=== PATIENT | male | born 1960 | race Caucasian/White ===

== ENCOUNTER 2017-03-28 12:41 | Inpatient (IN) | payer MEDICARE ==
[~2017-03-28] VITALS: Ht 180.3 cm; Wt 109.8 kg
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
--- NOTE | ~2017-03-28 | CON ---
PATIENT'S NAME: BERTA CLEMENT [facility] AGE: 56 Y [address] ROOM: [id number] [place], [place] [address] LOCATION: GICU ADMIT DATE: 03/28/2017 Consultation DISCHARGE DATE: FAMILY PHYSICIAN: Danie Velasquez MD ATTENDING PHYSICIAN: TOD PEÑALOZA DATE OF CONSULTATION: 03/30/2017 REFERRING PHYSICIAN: Annmarie Long MD REASON FOR CONSULTATION: Colitis. HISTORY OF PRESENT ILLNESS: This is a very pleasant 56-year-old male with a significant past medical history of neurogenic bladder, paraplegia, status post suprapubic catheter placement, and type 2 diabetes. The patient was in his usual state health on Tuesday and attended the [facility] where he and his ate something. As he retreated home that evening, he was feeling sick with persistent nausea without any vomiting as well as significant diarrhea through the night that amplified on Tuesday. The patient became incoherent at home with confusion, and he was then brought into the emergency room. He was noted to have hypotension with systolic blood pressure in the 60s. He was given numerous fluid resuscitations as he was found to be in severe septic shock as well as need for IV vasopressors for a short while. The patient was admitted to intensive care and has been doing well. On workup, the patient did undergo a CT scan completed showing prominent stool in the right and transverse colon, colonic wall thickening from the splenic flexure to the rectum with surrounding induration of fat compatible with colitis. Stool workup has been negative for O and P and C diff as well. He has been placed on Zosyn. The patient has been recovering well in Intensive Care. We were asked to see in consultation for the diarrhea as well as nausea as well as finding on the CT scan of colitis. The patient was seen and examined. He is a very pleasant gentleman where his is at bedside during our visit. The patient states that he began having stool on Tuesday that progressively worsened to loose extreme diarrhea. The patient was incoherent and cannot remember if he had any associated abdominal pain. The patient's , who was with him, does state that he had significant abdominal distention at that time that she describes as "tight abdomen." He denies any history of colonoscopy secondary to difficulty with prep and being wheelchair-bound. 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 Gurvinder Hamilton. He states that the last dilation was completed approximately 3 months ago, and he is due in April for this. He also states that he has had cortisone injections into his PATIENT'S NAME: BERTA CLEMENT [facility] AGE: 56 Y [address] ROOM: [id number] [place] [id number] LOCATION: GICU ADMIT DATE: 03/28/2017 Consultation DISCHARGE DATE: FAMILY PHYSICIAN: Danie Velasquez MD ATTENDING PHYSICIAN: TOD PEÑALOZA, though cannot provide any more detail. The patient currently denies any chest pain, chest pressure, shortness of breath, fever, or chills. No abdominal pain, nausea, or vomiting. The patient also denies any dysphagia or odynophagia. PAST MEDICAL HISTORY: Type 2 diabetes, paraplegia, status post suprapubic catheter placement, and hypertension. SOCIAL HISTORY: The patient is . Denies any alcohol, tobacco, or illicit drug use. FAMILY HISTORY: Diabetes in his father. He denies any known gastrointestinal diseases or cancers to his knowledge. ALLERGIES: IV AND ORAL CONTRAST, SULFA, BACLOFEN, BETADINE, SULFAMETHOXAZOLE, TRIMETHOPRIM, OXYBUTYNIN, AND LATEX. CURRENT MEDICATIONS: Please refer to the medication administration record. REVIEW OF SYSTEMS: An all-point review of systems was completed, all were negative except for those identified in the History of Present Illness. PHYSICAL EXAMINATION: GENERAL: A very pleasant 56-year-old gentleman, lying in bed, who appears to be in no acute distress. VITAL SIGNS: Temperature 98.0, pulse of 110, respirations of 14, blood pressure 178/94, and oxygen saturation is 95% on room air. SKIN: [place], warm, and dry. No jaundice. HEENT: Head is normocephalic and atraumatic. Pupils are equal, round, and reactive to light. Sclerae are clear, nonicteric. Oral mucosa is pink and moist. No thyromegaly. NECK: Soft and supple. CARDIOVASCULAR: Regular. Normal S1 and S2. RESPIRATORY: Respirations even and unlabored. Lungs clear to auscultation. ABDOMEN: Soft, round, and nontender, though the patient states he has limited sensation in his abdomen. Bowel sounds positive. MUSCULOSKELETAL: No muscle weakness or atrophy. EXTREMITIES: No edema. NEUROLOGIC: Grossly nonfocal. PATIENT'S NAME: BERTA CLEMENT [facility] AGE: 56 Y [address] ROOM: [place] [address] LOCATION: GICU ADMIT DATE: 03/28/2017 Consultation DISCHARGE DATE: FAMILY PHYSICIAN: Danie Velasquez MD ATTENDING PHYSICIAN: TOD PEÑALOZA LABORATORY AND DIAGNOSTIC DATA: Laboratory obtained on 03/29/2017 shows a white blood cell count of 10.0, hemoglobin of 10.3, hematocrit of 30.4, and platelets of 235. Chemistry panel includes a glucose of 232, BUN of 20, creatinine 0.9, sodium 133, potassium of 4.5, chloride of 101, and CO2 of 25. Albumin of 2.3. Phosphorus of 2.2. Magnesium of 2.4. ASSESSMENT AND PLAN: Again, this is a very pleasant 56-year-old gentleman who was recently admitted with severe septic shock. Past medical history significant for paraplegia as well as diabetes mellitus, type 2. He was admitted with severe diarrhea as well as nausea. A CT scan was completed, showing prominent stool in the right and transverse colon with colonic wall thickening from splenic flexure to rectum. In lieu of this, we will go forth with colonoscopy for first-time screening as well as identification of possible ischemic versus inflammatory versus infectious colitis. Also, in review of the patient's history, it appears that the patient has had esophageal dilations with Dr. Hamilton. At the same time as the colonoscopy, we will go forth with an upper endoscopy for evaluation of this. This will be communicated with his primary medical field representative for followup post our procedure. The patient will also have his heparin held for deep venous thrombosis prophylaxis in lieu of the patient's pending upper endoscopy and colonoscopy. We will also request upper endoscopy records from his most recent upper endoscopy. Thank you for this consult. SAAD BAILEY APRN FOR MD PHILIPPE SMITH/oscar /[id number] d: 03/30/17 1637 t: 04/05/17 1810, CONSULTATION REPORT
--- NOTE | ~2017-03-28 | DS ---
PATIENT'S NAME: BERTA CLEMENT [facility] AGE: 56 Y [address] ROOM: [facility] [place], [place] [address] LOCATION: GPCU ADMIT DATE: 03/28/2017 Discharge Summary DISCHARGE DATE: 04/01/2017 FAMILY PHYSICIAN: Danie Velasquez MD ATTENDING PHYSICIAN: Jayden Hermosillo FINAL DIAGNOSES: 1. Septic shock, secondary to suspected food poisoning. 2. Ischemic colitis. 3. Diabetes mellitus type 2. 4. Essential hypertension. 5. Paraplegia. 6. Obstructive sleep apnea. 7. Acute kidney injury. HISTORY OF PRESENT ILLNESS: Please see the history and physical dictated by Dr. Hermosillo for details of admission. In short, the patient presented with hypotensive with pressures in the 60s. He also had been having significant diarrhea. He was transferred from the outside facility after receiving IV fluids. LABORATORY DATA: On admission, sodium 130, discharge 135, potassium on admission was 6.4, at discharge is 3.7, chloride on admission 100, discharge 100, CO2 on admission 19, got as low as 17, at discharge is 27, BUN on admission was 35, got as high as 36, discharge 12, creatinine on admission 2, discharge 0.4, magnesium on admission was 2.5, discharge 1.8. Hemoglobin A1c 6.9. White blood cell count on admission was 13 with 51% bands, hemoglobin 11.5, hematocrit 34.1, and platelet count 285, most prior to discharge, white blood cell count 11.1, hemoglobin 9.7, hematocrit 28.3, platelet count 264, 27% bands. Urinalysis showed 20 to 50 whites, 2 to 5 reds. MICROBIOLOGY: Urine grew 10,000 to 50,000 E. coli. X-RAY DATA: On admission, chest x-ray did not show any acute findings. Abdominal x-ray did show constipation with colitis. HOSPITAL COURSE: The patient was admitted into the Intensive Care Unit with a diagnosis of septic shock. He had a CT scan at the outside facility and was somewhat suggestive of colitis. The patient was given aggressive IV hydration. Stool cultures were obtained as well as stool for C. diff. Blood cultures were obtained. He was given IV Zosyn and put on sliding scale insulin. Because of the acute kidney injury and the associated metabolic acidosis, the patient did receive IV bicarbonate. A CT scan was done, which did also confirm that he had constipation with evidence of colitis. He was stooling so much that we did have to place a rectal tube. We continued the PATIENT'S NAME: BERTA CLEMENT [facility] AGE: 56 Y [address] ROOM: [address] [place] [id number] LOCATION: GPCU ADMIT DATE: 03/28/2017 Discharge Summary DISCHARGE DATE: 04/01/2017 FAMILY PHYSICIAN: Danie Velasquez MD ATTENDING PHYSICIAN: Jayden Hermosillo aggressive IV hydration and he did receive 1 dose of Solu-Medrol. His blood pressures did improve and we did in fact have to give him hydralazine. He had had similar episodes so that the thought was that we needed to proceed with a colonoscopy for further evaluation. GI did see him and did concur. The patient did undergo a prep and a colonoscopy on March 31. At that time, it did show that he had significant colitis. All the stool cultures returned negative; so, the Zosyn was discontinued. He was placed back on some of his home medications including baclofen and he was put on NovoLog carb count to help control his blood sugars. He was able to eat and we were able to advance his diet without any difficulty. On the date of discharge, his pathology returned without any evidence of inflammatory bowel disease. It was felt that most likely the colitis was ischemic from his significant hypotension. He and his at that time felt comfortable going home. He is discharged to home. He is to follow up with Dr. Velasquez in 3 weeks. He is to see Dr. Hamilton as already scheduled. MEDICATIONS: 1. Baclofen 20 mg every 4 hours as needed. 2. Claritin 10 mg daily. 3. Protonix 40 mg daily. 4. Metformin 500 mg twice daily. 5. Naprosyn 500 mg twice daily. 6. Macrodantin 50 mg daily. 7. Amaryl 4 mg daily. 8. Ascorbic acid 500 mg 4 times daily. 9. Ditropan 5 mg twice daily. 10. Fiber-Lax 1250 mg twice daily. 11. Nexium 40 mg daily. 12. Sudafed 60 mg twice daily. 13. Feosol 325 mg daily. 14. Cranberry 500 mg daily. 15. Ramipril 5 mg daily. PROGNOSIS: Overall, prognosis at discharge is good. He and his did voice understanding. We did talk about slowly advancing his diet, but for now refraining from eating raw vegetables and fresh fruit and did encourage him to have softer meals and also encouraged him not to use medicines such as Imodium or Lomotil for diarrhea. CANDELARIO HAYES MD LAW/modl PATIENT'S NAME: BERTA CLEMENT [facility] AGE: 56 Y [address] ROOM: [place] [address] [facility] AD[facility] DATE: 03/28/2017 Discharge Summary DISCHARGE DATE: 04/01/2017 FAMILY PHYSICIAN: Danie Velasquez MD ATTENDING PHYSICIAN: Jayden Hermosillo /[id number] CC: MD Danie Schwartz MD d: 04/02/17 0400 t: 04/11/17 1426, DISCHARGE SUMMARY
[2017-03-28 15:50] LABS: HEMATOCRIT 34.1 % (37.0-53.0); HEMOGLOBIN 11.5 g/dL (12.0-17.0); MCH 32.5 pg (27.0-34.0); MCHC 33.7 gm/dL (32.0-36.5); MCV 96.3 fl (83.0-98.0); MPV 9.5 fl (9.4-12.4); PLATELET COUNT 286 K/uL (150-450); RBC 3.54 M/uL (4.00-6.00); RDW-CV 13.6 % (11.9-14.6)
[2017-03-28 16:06] LABS: ALBUMIN 2.4 gm/dL (3.5-5.0); ANION GAP 17.4 (10.0-19.0); MAGNESIUM 2.5 mg/dL (1.8-2.6); PHOSPHORUS 4.3 mg/dL (2.5-4.9); POTASSIUM 6.4 mMol/L (3.7-5.1)
[2017-03-28 16:07] LABS: CALCIUM 7.1 mg/dL (8.5-10.5)
[2017-03-28 16:17] LABS: BLOOD URINE 50 /UL (NEGATIVE); COLOR URINE BROWN (YELLOW); GLUCOSE URINE NEGATIVE (NEGATIVE); KETONE URINE 5 mg/dL (NEGATIVE); LEUKOCYTES URINE 500 /UL (NEGATIVE); NITRITE URINE NEGATIVE (NEGATIVE); PROTEIN URINE 30 mg/dL (NEGATIVE); UROBILINOGEN URINE 4 mg/dL (NORMAL)
[2017-03-28 16:21] LABS: TURBIDITY URINE 2+ (CLEAR)
[2017-03-28 16:24] LABS: ABSOLUTE NEUTROPHIL CT (ANC) 11.8 K/uL (1.4-9.0); BANDED NEUTROPHIL # 6.6 K/uL (0.0-0.1); BANDED NEUTROPHILS % 51 %; LYMPHOCYTE # 0.5 K/uL (0.8-4.0); LYMPHOCYTE % 4 %; MONOCYTE # 0.7 K/uL (0.0-1.0); SEGMENTED NEUTROPHIL # 5.2 K/uL (1.4-9.0); SEGMENTED NEUTROPHIL % 40 %
[2017-03-28 16:28] LABS: BACTERIA URINE MANY (NEGATIVE); CRYSTALS URINE CALCIUM OXALATE (NEGATIVE); WBC URINE 20-50 #/HPF (NEGATIVE)
[2017-03-28 16:32] LABS: AMORPHOUS URINE 2+ (NEGATIVE)
[2017-03-28 19:31] LABS: ALBUMIN 2.3 gm/dL (3.5-5.0); CREATININE 1.8 mg/dL (0.6-1.3)
[2017-03-28 19:32] LABS: ANION GAP 16.8 (10.0-19.0); CALCIUM 7.1 mg/dL (8.5-10.5); MAGNESIUM 2.5 mg/dL (1.8-2.6); POTASSIUM 5.8 mMol/L (3.7-5.1)
[2017-03-28] MEDS ORDERED: CIPRO500 MG PO (19:42)
[2017-03-28] MEDS ORDERED: LIORESAL DS20 MG PO (19:44)
[2017-03-28] MEDS ORDERED: GLUCOPHAGE500 MG PO (19:45)
[2017-03-28] MEDS ORDERED: NAPROSYN500 MG PO (19:46)
[2017-03-28] MEDS ORDERED: MACRODANTIN *IA50 MG PO (19:46)
[2017-03-28] MEDS ORDERED: AMARYL4 MG PO (19:47)
[2017-03-28] MEDS ORDERED: ASCORBIC ACID500 MG PO (19:48)
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
--- NOTE | 2017-03-28 20:19 | NUR ---
Significant Event: Alert to self and location. Unsure of specific month/year. Pupils 3mm brisk, nystagmus evident. Moves upper extremities spontaneously, equal strong hand grasp strength. LLE spontaneous movement and withdraw to painful stimuli evident. RLE no movement. Pt states having absent sensation from navel line down. SBP 80-170's, Levophed at 0.01 to keep MAP >65, HR 70-90's, 1+ edema to upper extremities, 2+ edema to lower extremities. L.S. clear and diminished in lower lobes on RA, to have CPAP at noc while sleeping. B.S. hypocative, BM x4 this shift, incontinent. Suprapubic catheter intact, draining dark clive urine. PIV L) forearm infusing Levophed with NaCl at TKO. L) upper arm infusing 1/2NaCl with Na Bicarb 100mEQ at 150ml/hr until bag done infusing then Na Bicarb 50mEq at 150mL/hr Follow up: Renal panel at midnoc, CT Abdomen/Pelvis tonight. CLear liquid diet. Accuchecks AC/HS.
[2017-03-29 05:18] LABS: HEMATOCRIT 30.4 % (37.0-53.0); HEMOGLOBIN 10.3 g/dL (12.0-17.0); MCH 32.3 pg (27.0-34.0); MCHC 33.9 gm/dL (32.0-36.5); MCV 95.3 fl (83.0-98.0); MPV 9.7 fl (9.4-12.4); PLATELET COUNT 235 K/uL (150-450); RBC 3.19 M/uL (4.00-6.00); RDW-CV 13.4 % (11.9-14.6)
--- NOTE | 2017-03-29 05:35 | NUR ---
Significant Event: Patient remains on room air with clear and dim lung sounds. Bowel sounds are hypoactive but BMs are liquid brown. Flexiseal is in place. Patient's orientation is inconsistant to time but consistant and correct to place and person. Patient denies pain. Bicarb 50 mEq continues at 150ml/hr. Pupils 2 and brisk and equal and reactive to light. Follow up: continue with cares, CT of abdomen showed constipation.
[2017-03-29 05:44] LABS: ALBUMIN 2.2 gm/dL (3.5-5.0); ANION GAP 12.8 (10.0-19.0); CREATININE 1.2 mg/dL (0.6-1.3); MAGNESIUM 2.3 mg/dL (1.8-2.6); PHOSPHORUS 2.9 mg/dL (2.5-4.9); POTASSIUM 4.8 mMol/L (3.7-5.1)
[2017-03-29 05:46] LABS: CALCIUM 7.2 mg/dL (8.5-10.5)
[2017-03-29 06:16] LABS: ABSOLUTE NEUTROPHIL CT (ANC) 8.6 K/uL (1.4-9.0); BANDED NEUTROPHILS % 50 %; LYMPHOCYTE # 0.9 K/uL (0.8-4.0); LYMPHOCYTE % 9 %; MONOCYTE # 0.4 K/uL (0.0-1.0); SEGMENTED NEUTROPHIL # 3.6 K/uL (1.4-9.0); SEGMENTED NEUTROPHIL % 36 %
--- NOTE | 2017-03-29 14:24 | NUR ---
Introduced self and role of care management to patient and his . They live in [place]. He states that he is able to do some of his own ADL's. He is w/c bound as he is a paraplegic. His assists as needed. He does have a transfer system in the bedroom and bathroom. I offered to have home health follow on discharge but he refused. He states that they have a good routine down and will not need any additional help. He plans on returning home on discharge. They deny any needs at this time. Will continue to follow.
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
[2017-03-29 18:22] LABS: ALBUMIN 2.3 gm/dL (3.5-5.0); ANION GAP 11.5 (10.0-19.0); BLOOD UREA NITROGEN 20 mg/dL (6-24); CALCIUM 7.6 mg/dL (8.5-10.5); CHLORIDE 101 mMol/L (96-110); CO2 25 mMol/L (22-32); CREATININE 0.9 mg/dL (0.6-1.3); MAGNESIUM 2.4 mg/dL (1.8-2.6); PHOSPHORUS 2.2 mg/dL (2.5-4.9); POTASSIUM 4.5 mMol/L (3.7-5.1); SODIUM 133 mMol/L (135-145)
--- NOTE | 2017-03-30 05:18 | NUR ---
SSignificant Event: PATIENT IS ORIENTED X3. BPS ARE STABLE AND RATES ARE 90S-100S. EDEMA TO L. HAND AND FORARM DUE TO INFLITRATED IV. PATIENT ON CPAP AT NIGHT AND ROOM AIR DURING THE DAY, LUNG SOUNDS ARE CLEAR. BOWEL SOUNDS ARE HYPOACTIVE, FLEXISEAL IS IN PLACE. URINE IS WILVER IN COLOR WITH ADEQUATE OUTPUT. PATIENT IS ON CLEAR LIQUID DIET. IV TO LEFT UPPER ARM HAS NS AT 125/HR. AFEBRILE. Follow up: POSSIBLE CHANGE IN STATUS
[2017-03-30] MEDS ORDERED: DITROPAN5 MG PO (11:27)
[2017-03-30] MEDS ORDERED: FIBER LAX625 MG PO (11:29)
[2017-03-30] MEDS ORDERED: CLARITIN10 MG PO (11:31)
[2017-03-30] MEDS ORDERED: NEXIUM40 MG PO (11:31)
[2017-03-30] MEDS ORDERED: SUDOGEST60 MG PO (11:33)
[2017-03-30] MEDS ORDERED: PROTONIX40 MG PO (11:33)
[2017-03-30] MEDS ORDERED: FEOSOL325 MG PO (11:34)
[2017-03-30] MEDS ORDERED: CRANBERRY500 M3 PO (11:35)
[2017-03-30 14:52] LABS: HEMATOCRIT 28.3 % (37.0-53.0); HEMOGLOBIN 9.7 g/dL (12.0-17.0); MCH 31.8 pg (27.0-34.0); MCHC 34.3 gm/dL (32.0-36.5); MCV 92.8 fl (83.0-98.0); MPV 9.2 fl (9.4-12.4); PLATELET COUNT 264 K/uL (150-450); RBC 3.05 M/uL (4.00-6.00); RDW-CV 13.4 % (11.9-14.6); WBC 11.1 K/uL (4.0-11.0)
[2017-03-30 15:05] LABS: ALBUMIN 2.2 gm/dL (3.5-5.0); ANION GAP 10.3 (10.0-19.0); BLOOD UREA NITROGEN 13 mg/dL (6-24); CALCIUM 7.8 mg/dL (8.5-10.5); CHLORIDE 101 mMol/L (96-110); CO2 25 mMol/L (22-32); CREATININE 0.6 mg/dL (0.6-1.3); MAGNESIUM 2.5 mg/dL (1.8-2.6); POTASSIUM 4.3 mMol/L (3.7-5.1); SODIUM 132 mMol/L (135-145)
[2017-03-30 15:06] LABS: PHOSPHORUS 1.3 mg/dL (2.5-4.9)
[2017-03-30 16:13] LABS: ABSOLUTE NEUTROPHIL CT (ANC) 9.3 K/uL (1.4-9.0); BANDED NEUTROPHILS % 27 %; LYMPHOCYTE # 1.3 K/uL (0.8-4.0); LYMPHOCYTE % 12 %; MONOCYTE # 0.4 K/uL (0.0-1.0); SEGMENTED NEUTROPHIL # 6.3 K/uL (1.4-9.0); SEGMENTED NEUTROPHIL % 57 %
--- NOTE | 2017-03-30 16:44 | NUR ---
Significant Event: AAOx3. Pupils 3mm, equal and sluggish, nystagmus present. Upper extremities, equal strong strength. Spasms to lower extremities occasionally. Denies [place] or blurred vision. SBP 140-190's, to keep SBP <165. HR 90-100's, 3+ LUE edema, 1+ generalized edema, weak pedal pulses. L.S. clear and diminished in lower lobes on RA. B.S. hypoactive, flexi-seal intact. Supra-pubic draining light clive urine. PIV R) upper arm SL'd. Mid-line L) upper arm SL'd. Clear liquid diet, no reds or purples. Follow up: NPO for EGD and colonoscopy in AM.
--- NOTE | 2017-03-31 01:50 | NUR ---
ALERT/ORIENTED X3. VSS ON RA. PERSISTENT COUGH. NO C/O PAIN. SUPRAPUBIC CATH AND FLEXISEAL INTACT. LEFT UPPER ARM MIDLINE INFUSING. RIGHT UPPER ARM PIV SL'D. TRANSFERRED TO PCU AT 2300.
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
[2017-03-31 04:39] LABS: ALBUMIN 2.2 gm/dL (3.5-5.0); ANION GAP 12.5 (10.0-19.0); BLOOD UREA NITROGEN 14 mg/dL (6-24); CHLORIDE 102 mMol/L (96-110); CO2 25 mMol/L (22-32); CREATININE 0.6 mg/dL (0.6-1.3); MAGNESIUM 2.3 mg/dL (1.8-2.6); PHOSPHORUS 1.6 mg/dL (2.5-4.9); POTASSIUM 4.5 mMol/L (3.7-5.1); SODIUM 135 mMol/L (135-145)
--- NOTE | 2017-03-31 19:05 | NUR ---
PATIENT TO ENDO THIS AM. D/C'D NAZIA. LASIX X1. SURGICAL SOFT DIET ORDERED, TOLERATING WELL. AT BEDSIDE ASSISTING WITH CARES.
[2017-04-01 04:32] LABS: ANION GAP 11.7 (10.0-19.0); BLOOD UREA NITROGEN 12 mg/dL (6-24); CALCIUM 7.7 mg/dL (8.5-10.5); CHLORIDE 100 mMol/L (96-110); CO2 27 mMol/L (22-32); CREATININE 0.4 mg/dL (0.6-1.3); MAGNESIUM 1.8 mg/dL (1.8-2.6); PHOSPHORUS 3.3 mg/dL (2.5-4.9); POTASSIUM 3.7 mMol/L (3.7-5.1); SODIUM 135 mMol/L (135-145)
--- NOTE | 2017-04-01 14:45 | NUR ---
PT SCREENED D/T LOS. EST NEEDS: [id number] KCALS, 94-117 GM PROTEIN, 1 ML/KCAL FLUIDS. PT EATING 100%. BMI IN OBESE RANGE. NO NUTRITION-RELATED DX IDENTIFIED. WILL F/U IN 7-10 DAYS.
[2017-04-01] MEDS ORDERED: ALTACE5 MG PO (17:02)
--- NOTE | 2017-04-01 19:12 | NUR ---
PATIENT DISMISSED TO HOME W/ PER PRIVATE AUTO. PATIENT TRANSFERED TO [place] BY PERSONAL W/C WITH NURSE AID. REVIEWED DISMISSAL INSTRUCTIONS WITH PATIENT AND , BOTH VERBALIZED UNDERSTANDING.
== END 2017-04-01 16:00 | disposition disaster alternative care site (69) | DRG 917 ==
LOC: GICU 12:41 → GPCU 03-30 23:06
PROVIDERS: Internal Medicine; Internal Medicine Gastroenterology; ADMIT Internal Medicine
DX: T62.91XA Toxic effect of unspecified noxious substance eaten as food, accidental (unintentional), initial encounter (principal); A41.9 Sepsis, unspecified organism; R65.21 Severe sepsis with septic shock; N17.9 Acute kidney failure, unspecified; K55.9 Vascular disorder of intestine, unspecified; G82.20 Paraplegia, unspecified; I95.9 Hypotension, unspecified; N39.0 Urinary tract infection, site not specified; E11.9 Type 2 diabetes mellitus without complications; B96.20 Unspecified Escherichia coli [E. coli] as the cause of diseases classified elsewhere; I10 Essential (primary) hypertension; G47.33 Obstructive sleep apnea (adult) (pediatric)
CPT/HCPCS: C1751; C9113; G0008; J0360; J0610; J1644; J1940; J2405; J2543; J2920; J7030; J7040; J7050; J7060